=== PATIENT | male | born 1990 | race Two or more races ===

== ENCOUNTER 2024-08-04 12:13 | Emergency (ER) | payer OTHER ==
[~2024-08-04] VITALS: Ht 167.6 cm; Wt 72.6 kg
[2024-08-04] MEDS ORDERED: ACETAMINOPHEN500 M1 PO (18:24)
[2024-08-04] MEDS ORDERED: GILTUSS COUGH-118 M1 PO (18:24)
[2024-08-04] MEDS ORDERED: OSEL75CA PO (18:24)
== END 2024-08-04 18:57 | disposition home or self-care (01) ==
LOC: ER 12:15
DX: J10.1 Influenza due to other identified influenza virus with other respiratory manifestations (principal); Z20.822 Contact with and (suspected) exposure to COVID-19